=== PATIENT | female | born 2005 | race Caucasian/White ===

== ENCOUNTER 2024-12-05 11:28 | Outpatient (CLI) | payer BC, SELFPAY ==
[2024-12-05 11:47] LABS: Hematocrit 39.5 % (33.0-51.0); Hemoglobin* 13.0 gm/dL (12.0-16.0); Immature Granulocytes Abs Auto 0.00 K/uL (0.00-0.30); Immature Granulocytes Pct Auto 0.0 %; Lymphocytes Absolute Auto 1.83 K/uL (0.90-2.90); Mean Corpuscular HGB Conc 33 gm/dL (32-36); Mean Corpuscular Hemoglobin 28 pg (26-34); Mean Corpuscular Volume 86 fL (80-100); RDW Coefficient of Variation % 11.5 % (11.5-15.5); Red Blood Count 4.58 m/uL (4.00-5.20); White Blood Count* 5.89 K/uL (4.50-11.00)
[2024-12-05 11:48] LABS: Slide Review Reflex No
[2024-12-05 12:03] LABS: Albumin* 4.6 g/dL (3.3-5.0); Chloride* 104 mmol/L (96-114)
[2024-12-05 12:04] LABS: Potassium* 3.9 mmol/L (3.6-5.1); Sodium* 138 mmol/L (135-149)
[2024-12-05 12:06] LABS: Alanine Aminotransferase* 18 U/L (4-35); Aspartate Amino Transferase* 27 U/L (12-35); Blood Urea Nitrogen* 14 mg/dL (5-24); Creatinine* 0.7 mg/dL (0.5-1.5); Estimated Glomerular Filt Rate 126 ml/min
[2024-12-05 12:07] LABS: Alkaline Phosphatase* 55 U/L (40-150); Anion Gap 7 mEq/L (7-15); Bilirubin Total* 1.2 mg/dL (0.1-1.5); Calcium* 9.5 mg/dL (8.4-10.6); Carbon Dioxide* 27 mmol/L (20-32); Glucose* 90 mg/dL (60-115); Total Protein* 7.9 g/dL (6.0-8.3)
[2024-12-05 13:01] LABS: Erythrocyte SedimentationRate* 10 mm/hr (2-20)
== END 2024-12-05 11:29 | disposition home or self-care (01) ==
PROVIDERS: PCP Internal Medicine; Visit Provider Pediatrics Pediatric Gastroenterology
DX: K50.80 Crohn's disease of both small and large intestine without complications (principal)
CPT/HCPCS: 36415; 80053; 85025; 85651; 86140

== ENCOUNTER 2025-02-14 14:59 | Outpatient (CLI) | payer BC, SELFPAY | END 2025-02-14 15:00 | disposition home or self-care (01) | PROVIDERS: PCP Internal Medicine; Visit Provider Pediatrics Pediatric Gastroenterology | DX: K50.80 Crohn's disease of both small and large intestine without complications (principal) | CPT/HCPCS: 36415; 80145; 82397 ==

== ENCOUNTER 2025-05-20 14:12 | Outpatient (CLI) | payer BC, SELFPAY | END 2025-05-20 14:13 | disposition home or self-care (01) | PROVIDERS: PCP Internal Medicine; Referring Provider Pediatrics Pediatric Gastroenterology; Visit Provider Pediatrics Pediatric Gastroenterology | DX: K50.80 Crohn's disease of both small and large intestine without complications (principal) | CPT/HCPCS: 36415 ==